=== PATIENT | male | born 1965 | race Caucasian/White ===

== ENCOUNTER 2020-08-10 10:48 | Day surgery (SDC) | payer OTHER ==
[~2020-08-10 10:48] MED LIST: DIPRIVAN 200 MG/20 ML IV ONE; Ketamine HCl 50 MG/ML ONE
[2020-08-10] MEDS ORDERED: Depo-Medrol 40 MG/ML IM ONE (10:49)
[2020-08-10] MEDS ORDERED: Sodium Chloride 0.9(Preservative Free) 10 ML IJ ONE (10:49)
--- NOTE | 2020-08-10 13:05 | XRAY ---
Indication: Left L4-S1 transforaminal POLO. Intraoperative fluoroscopy was provided for 42 seconds. 5 digital spot images submitted for interpretation demonstrates posterior needle tips projecting over the expected left L4 and L5 nerve roots. Small amount of contrast injected for needle tip placement. Correlate with intraoperative findings/report. Incidental bilateral L4-S1 posterior fusion hardware and intervertebral spacer.
--- NOTE | 2020-08-10 13:17 | XRAY ---
42 seconds fluoroscopy time in surgery for left L4-S1 transforaminal POLO.
[2020-08-10] MEDS ORDERED: Lactated Ringers 1,000 ML IV ONE (16:49)
== END 2020-08-10 12:40 | disposition home or self-care (01) ==
LOC: SDC-PAIN 10:48
PROVIDERS: ATTEND Psychiatry & Neurology Pain Medicine
DX: M54.16 Radiculopathy, lumbar region (principal); J44.9 Chronic obstructive pulmonary disease, unspecified; F41.8 Other specified anxiety disorders; R01.1 Cardiac murmur, unspecified; Z79.899 Other long term (current) drug therapy
CPT/HCPCS: 64483; 64484; 72100; 77003; J1030; J2704; Q9966

== ENCOUNTER 2021-03-22 15:07 | Day surgery (SDC) | payer MEDICARE ==
[2021-03-22] MEDS ORDERED: CEFAZOLIN 2 GM-D5W BAG** 2 GM/50 ML ML IV ONE (15:08)
[2021-03-22] MEDS ORDERED: Sodium Chloride 0.9(Preservative Free) 10 ML IJ ONE (15:08)
[2021-03-22] MEDS ORDERED: Xylocaine 1% Vial 30 ML PF IJ ONE (15:08)
[2021-03-22] MEDS ORDERED: Lactated Ringers 1,000 ML IV ONE (15:44)
[2021-03-22] MEDS ORDERED: DIPRIVAN 200 MG/20 ML IV ONE ×2 (16:32→17:00)
[2021-03-22] MEDS ORDERED: SUBLIMAZE 100 MCG/2 ML ONE (17:13)
[2021-03-22] MEDS ORDERED: BACIGUENT 30 GM ONE (17:16)
--- NOTE | 2021-03-22 18:36 | XRAY ---
Indication: Spinal cord stimulator placement. Intraoperative fluoroscopy provided for 1 minute 40 seconds. 4 digital spot images demonstrates introducer needle at L1. Ultimate single epidural lead inserted with tip positioned mid thoracic level. Correlate with intraoperative findings/report.
--- NOTE | 2021-03-23 09:12 | XRAY ---
1 minute and 40 seconds fluoroscopy time in surgery for placement of spinal cord stimulator.
== END 2021-03-22 17:59 | disposition home or self-care (01) ==
LOC: SDC-PAIN 15:07
PROVIDERS: ATTEND Psychiatry & Neurology Pain Medicine
DX: M96.1 Postlaminectomy syndrome, not elsewhere classified (principal); J44.9 Chronic obstructive pulmonary disease, unspecified; F41.8 Other specified anxiety disorders; R01.1 Cardiac murmur, unspecified; Z79.899 Other long term (current) drug therapy
CPT/HCPCS: 63650; 72100; 77002; C1778; J0690; J2001; J2704; J3010; A9270-GY